=== PATIENT | male | born 1990 | race Caucasian/White ===

== ENCOUNTER 2016-07-27 22:07 | Emergency (ER) | payer SELFPAY | END 2016-07-28 00:10 | disposition home or self-care (01) | LOC: ER 22:07 | DX: J20.8 Acute bronchitis due to other specified organisms (principal); S39.011A Strain of muscle, fascia and tendon of abdomen, initial encounter; F17.210 Nicotine dependence, cigarettes, uncomplicated | CPT/HCPCS: 71020 ==